=== PATIENT | female | born 1955 | race Caucasian/White ===

== ENCOUNTER 2016-12-29 07:08 | Emergency (ER) | payer OTHER ==
[~2016-12-29] VITALS: Ht 165.1 cm; Wt 71.0 kg
[~2016-12-29 07:08] MED LIST: CYCL-36 PO; IBUP800T23 PO
[2016-12-29 07:10] VITALS: BP 179/88; PULSE 87; RESP 18; TEMP 98; O2SAT 97
--- NOTE | 2016-12-29 07:31 | PD ---
HPI . right elbow pain, right hip pain, left wrist pain Chief Complaint: Fall Time Seen by Provider: 07:30 Travel History International Travel<30 days: No Contact w/Intl Traveler<30days: No Traveled to known affect area: No History of Present Illness HPI 61-year-old female with no past medical history here status post fall while leaving pharmacy at [facility] here today. Patient says that she fell and hit her right hip, right elbow and left wrist. She rates the pain as 2/10 and there is no further radiation of that in these areas. She is ambulatory and has full range of motion of all of these joints. She denies any head injury or loss of consciousness. She has no other complaints. [facility] Past Medical History Medical History: Denies Significant Hx Diminished Hearing: No ?: Not Menopausal: Yes Past Surgical History Surgical History: No Previous Surgery Social History Alcohol Use: No Tobacco Use: No Substance Use: No Allergies-Medications (Allergen,Severity, Reaction): Coded Allergies: No Known Allergies (Verified , 12/29/16) Reported Meds & Prescriptions Reported Meds & Active Scripts Active Ibuprofen 800 Mg Tab 800 Mg PO TID Flexeril (Cyclobenzaprine HCl) 5 Mg Tab 5 Mg PO HS Review of Systems General / Constitutional: No: Fever Eyes: No: Visual changes HENT: No: Headaches Cardiovascular: No: Chest Pain or Discomfort Respiratory: No: Shortness of Breath Gastrointestinal: No: Abdominal Pain Genitourinary: No: Dysuria Musculoskeletal: Positive: Pain (right hip, right elbow, left wrist) Skin: No Rash Neurologic: No: Weakness Psychiatric: No: Depression Endocrine: No: Polydipsia Hematologic/Lymphatic: No: Easy Bruising Physical Exam Narrative GENERAL: AAO x 3, no acute distress, Well-nourished, well-developed patient. SKIN: Warm and dry. No visible rashes or bruising. Very minimal amounts of ecchymosis on the right distal humerus. HEAD: Normocephalic and atraumatic. EYES: No scleral icterus. No injection or drainage. ENT: No nasal drainage noted. Airway patent. NECK: Supple, trachea midline. No JVD. CARDIOVASCULAR: Regular rate and rhythm without murmurs, gallops, or rubs. RESPIRATORY: Breath sounds equal bilaterally. No accessory muscle use. No rhonchi or rales. GASTROINTESTINAL: Abdomen soft, non-tender, nondistended. EXTREMITIES: No cyanosis or edema. Full range of motion of right elbow, right hip and left wrist. There is no edema. Very mild ecchymosis on the right distal humerus. BACK: Nontender without obvious deformity. No CVA tenderness. PSYCH: AAO x 3, normal affect. Data Data Last Documented VS Vital Signs Date Time Temp Pulse Resp B/P Pulse Ox O2 Delivery O2 Flow Rate FiO2 12/29/16 07:10 98.0 87 18 179/88 97 MDM Medical Decision Making Medical Screen Exam Complete: Yes Emergency Medical Condition: Yes Medical Record Reviewed: Yes Differential Diagnosis Status post fall, right elbow contusion, right hip contusion, left wrist contusion, less likely fractures Narrative Course In summary, this is a 61-year-old female status post fall earlier this morning. She was leaving the pharmacy here at [facility] and hurt her right elbow, right hip and left wrist. All of these joints are mobile. There is no evidence of acute fracture. I've discussed these findings with her. We are both in agreement that x-rays are not indicated. I advised her that she'll probably have some tenderness and soreness later on as the day progresses. I provided her with ibuprofen and Flexeril. We have discussed the side effects of Flexeril. Patient verbalized understanding of instructions, questions were answered, and thanked me for their care. I advised them if their condition worsens, please return to the nearest emergency room for further care. Diagnosis Primary Impression: Contusion of elbow, right Additional Impressions: Contusion of hip, right Fall Qualified Code: W19.XXXA - Fall, initial encounter Patient Instructions: General Instructions Additional Instructions: Please return to emergency department if your symptoms return or worsen. Follow up with your primary care provider. Take medications as prescribed. Med/Other Pt SpecificInfo: Prescription(s) given Scripts Ibuprofen 800 Mg [id number] Mg PO TID #21 TAB Prov:Kulwant Bynum MD 12/29/16 Cyclobenzaprine (Flexeril)5 Mg Tab5 Mg PO HS #7 TAB Prov:Kulwant Bynum MD 12/29/16 Disposition: 01 DISCHARGE HOME Condition: Stable Le Roberts December 29, 2016 07:31
[2016-12-29] MEDS ORDERED: IBUP800T23 PO (07:36)
[2016-12-29] MEDS ORDERED: CYCL5TAB PO (07:36)
== END 2016-12-29 08:00 | disposition home or self-care (01) ==
LOC: NEPK 07:08
DX: S70.01XA Contusion of right hip, initial encounter (principal); S50.01XA Contusion of right elbow, initial encounter; W18.30XA Fall on same level, unspecified, initial encounter; Y93.9 Activity, unspecified; Y92.238 Other place in hospital as the place of occurrence of the external cause; Y99.8 Other external cause status
CPT/HCPCS: 99283